=== PATIENT | male | born 2000 | race Caucasian/White ===

== ENCOUNTER → 2021-11-26 | Outpatient (CLI) | payer BC | END | disposition home or self-care (01) | LOC: COVID19 09:16 | PROVIDERS: ATTEND Internal Medicine | DX: U07.1 COVID-19 (principal) ==

== ENCOUNTER 2022-04-14 12:53 | Emergency (ER) | payer BC ==
[~2022-04-14] VITALS: Ht 185.4 cm; Wt 73.5 kg
== END 2022-04-14 16:22 | disposition home or self-care (01) ==
LOC: ED 12:53
DX: J11.1 Influenza due to unidentified influenza virus with other respiratory manifestations (principal); Z20.822 Contact with and (suspected) exposure to COVID-19

== ENCOUNTER 2022-10-28 07:37 | Emergency (ER) | payer BC ==
[~2022-10-28] VITALS: Ht 187.9 cm; Wt 79.4 kg
[2022-10-28] MEDS ORDERED: TRIAMCINOLONE430 GM TD (08:21)
[2022-10-28] MEDS ORDERED: PREDNISONE20 M1 PO (08:21)
== END 2022-10-28 08:28 | disposition home or self-care (01) ==
LOC: ED 07:37
DX: L25.9 Unspecified contact dermatitis, unspecified cause (principal)